=== PATIENT | female | born 1965 ===

== ENCOUNTER 2021-04-22 14:10 | Emergency (ER) | payer OTHER ==
[~2021-04-22] VITALS: Ht 160 cm; Wt 65.3 kg
[2021-04-22] MEDS ORDERED: ONDANSETRON HCL 4 MG/2 ML VIAL ONE (14:19)
[2021-04-22] MEDS ORDERED: MORPHINE SULFATE INJECTION 2 MG/ML SYRG ONE (14:19)
[2021-04-22 14:40] LABS: Hematocrit 44.7 % (36.0-46.0); Mean Corpuscular Hemoglobin 30.7 pg (28.0-32.0); Mean Corpuscular Hgb Conc. 33.5 g/dL (32.0-36.0); Mean Corpuscular Volume 91.7 fL (80.0-100.0); Red Blood Cells 4.88 10^6/uL (4.0-5.20); Red Cell Distribution Width 13.4 % (11.8-14.3)
[2021-04-22] MEDS ORDERED: MORPHINE SULFATE INJECTION 2 MG/ML SYRG IV ONE (14:45)
[2021-04-22] MEDS ORDERED: ONDANSETRON HCL 4 MG/2 ML VIAL IV ONE (14:45)
[2021-04-22 14:55] LABS: White Blood Cell 0.9 10^3/uL (4.4-10.8)
[2021-04-22 14:57] LABS: Band Neutrophils % (manual) 0; Basophils % (manual) 0 (0.0-2.0); Blast Cells 0; Eosinophils % (manual) 0 (0-7); Metamyelocytes % 0; Myelocytes % 0; Promyelocytes % 0; Reactive Lymphocytes 0
[2021-04-22 15:02] LABS: Anion Gap 10 (5-15); Carbon Dioxide 20 mmol/L (21-32); Chloride 110 mmol/L (98-107); Potassium 3.8 mmol/L (3.5-5.1); Sodium 140 mmol/L (136-145)
[2021-04-22 15:03] LABS: Alanine Aminotransferase 44 U/L (13-56); Albumin 3.5 g/dL (3.4-5.0); Alkaline Phosphatase 100 U/L (45-117); Aspartate Aminotransferase 63 U/L (15-37); BUN/Creatinine Ratio 13.8; Blood Urea Nitrogen 11 mg/dL (7-18); Calcium 8.2 mg/dL (8.5-10.1); GFR African American 96 mL/min; GFR Non-African American 80 mL/min; Glucose 118 mg/dL (74-106); Total Protein 6.6 g/dL (6.4-8.2)
[2021-04-22] MEDS ORDERED: LIDOCAINE VISCOUS 2% 15ML UD PO ONE (15:30)
[2021-04-22] MEDS ORDERED: DONNATAL 5ml ORAL Elix (BELLADONNA ALK-PHENOBARB) PO ONE (15:30)
[2021-04-22] MEDS ORDERED: PROCHLORPERAZINE EDISYLATE 5 MG/ML 2ML VIAL IV ONE (15:30)
[2021-04-22] MEDS ORDERED: ALUM & MAG HYDROX-SIMETH LIQ(MAALOX) 30 ML PO ONE (15:30)
[2021-04-22 16:15] LABS: Lymphocytes % (manual) 30 (10.0-50.0); Monocytes % (manual) 6 (0-12)
[2021-04-22] MEDS ORDERED: SODIUM CHLORIDE 0.9% 1,000 ML IV ONE (17:00)
[2021-04-22 17:02] LABS: Amylase 33 U/L (25-115); Lipase 111 U/L (73-393)
[2021-04-23 01:00] VITALS: BP 96/54
== END 2021-04-23 01:18 | disposition home or self-care (01) ==
LOC: ER 14:10
DX: R10.13 Epigastric pain (principal); K83.9 Disease of biliary tract, unspecified; M79.2 Neuralgia and neuritis, unspecified; Z90.49 Acquired absence of other specified parts of digestive tract; Z90.710 Acquired absence of both cervix and uterus; Z88.6 Allergy status to analgesic agent; Z20.822 Contact with and (suspected) exposure to COVID-19
CPT/HCPCS: 36415; 71045; 74176; 80053; 82150; 83690; 84484; 85007; 85027; 87426; 93005; 96361; 96374; 96375; 99285; J0780; J2270; J2405; J7030